=== PATIENT | male | born 1985 | race Caucasian/White ===

== ENCOUNTER 2021-05-11 11:20 | Emergency (ER) | payer SELFPAY ==
[2021-05-11 11:29] VITALS: BP 152/100; PULSE 72; BMI 35.2
[2021-05-11] MEDS ORDERED: DIPHTH,PERTUSS(ACELL),TET 0.5 ML DISP.SYRIN IM ONE ×2 (12:18→12:29)
== END 2021-05-11 12:50 | disposition home or self-care (01) ==
LOC: JERFT 11:20
PROC: 0HQ0XZZ Repair Scalp Skin, External Approach (ICD-10-PCS; principal; 2021-05-11)
DX: S01.00XA Unspecified open wound of scalp, initial encounter (principal); W26.8XXA Contact with other sharp object(s), not elsewhere classified, initial encounter; Y92.000 Kitchen of unspecified non-institutional (private) residence as the place of occurrence of the external cause
CPT/HCPCS: 12002; 90715; 99282-25

== ENCOUNTER 2021-05-22 11:50 | Emergency (ER) | payer OTHER ==
[2021-05-22 12:15] VITALS: BP 156/87; PULSE 84; TEMP 98.1; BMI 34.4
== END 2021-05-22 12:43 | disposition home or self-care (01) ==
LOC: JERFT 11:50 → JER 11:50 → JERFT 12:43
DX: Z48.02 Encounter for removal of sutures (principal)
CPT/HCPCS: 99281-25